=== PATIENT | female | born 1950 | race Asian ===

== ENCOUNTER 2020-12-05 08:19 | Outpatient (CLI) | payer MEDICARE | END 2020-12-05 08:20 | disposition critical access hospital (66) | LOC: EMS 08:19 | PROVIDERS: ATTEND Emergency Medicine | DX: R26.81 Unsteadiness on feet (principal); R51.9 Headache, unspecified | CPT/HCPCS: A0425; A0429 ==

== ENCOUNTER 2020-12-05 08:29 | Observation (INO) | payer MEDICARE, OTHER ==
--- NOTE | 2020-12-05 09:32 | ED Physician Documentation ---
History of Present Illness - Stated complaint Stated Complaint: WEAKNESS - Chief complaint Chief Complaint: General - History obtained from History obtained from: Patient - Additonal information Additional information: 70-year-old woman with past medical history of diabetes (on Metformin and glimepiride bid), high blood pressure (on atenolol 50 mg every morning, hydrochlorothiazide every morning, losartan nightly), hld, nonsmoker, p/w multiple presyncopal episodes this morning upon waking. Patient states that she was feeling normal yesterday and went to bed but then awoke this morning and sat up suddenly with subsequent waves of nausea and lightheadedness. She laid back down and then attempted to get up multiple times and feels that she either almost fainted or did faint with her legs shaking and then giving out. She called EMS and drink a few sips of soda, thinking that her blood sugar may be low. On arrival fingerstick was in the 140s and she was found to be hypertensive. In the emergency department she states that she is asymptomatic as long as she stays still but gets lightheaded when she moves around. Denies chest pain, shortness of breath, fevers, back pain or abdominal pain. No neuro deficits however her brain feels "foggy". She was seen by her pcp last week and given a new medicine script but doesn't know what it is. She also has trouble listing her meds and some of the bottles have her 's name on it. She says this is because she takes the same meds and is just using his leftover meds so as not to waste them. Of note, patient denies taking atenolol this am, however she is bradycardic in the ED. Collateral info from daughter in [place]: patient is independent with ADLs and takes her own medications, has not had issue in the past. Her Libby in January 2020. Note that the patient and her took some of the same meds and the atenolol bottle has his name on it. Review of Systems Ten Systems: 10 systems reviewed and negative Constitutional: denies: Fever, Chills Cardiac: denies: Chest pain / pressure Respiratory: denies: Dyspnea GI: reports: Nausea. denies: Abdominal Pain, Vomiting Neurologic: reports: Generalized weakness, Near syncope, Syncope (presyncope vs syncope). denies: Focal weakness, Numbness, Difficulty speaking PD PAST MEDICAL HISTORY - Past Medical History Past Medical History: Yes Cardiovascular: Hypertension Endocrine/Autoimmune: Type 2 diabetes - Past Surgical History Past Surgical History: No - Present Medications Home Medications: Ambulatory Orders Medication Instructions Recorded Confirmed Atorvastatin Calcium [Lipitor] 40 mg PO HS 05/21/13 12/05/20 Fexofenadine [Mariluz] 60 mg PO HS 05/21/13 12/05/20 Hydrochlorothiazide 25 mg PO HS 05/21/13 12/05/20 Losartan [Cozaar] 50 mg PO HS 05/21/13 12/05/20 Metformin HCl [Glucophage Xr] 500 mg PO BID 05/21/13 12/05/20 Omeprazole 20 mg PO HS 05/21/13 12/05/20 Aspirin [Aspirin EC] 1 tab PO DAILY 12/05/20 12/05/20 Atenolol [Tenormin] 1 tab PO DAILY 12/05/20 12/05/20 Glimepiride [Amaryl] 1 tab PO BID 12/05/20 12/05/20 Tocopheryl [Vitamin E] 1 tab PO BID 12/05/20 12/05/20 traZODone [Desyrel] 1 tab PO ACHS PRN 12/05/20 12/05/20 - Allergies Allergies/Adverse Reactions: Allergies Allergy/AdvReac Type Severity Reaction Status Date / Time Penicillins Allergy Mild itch Verified 12/05/20 09:07 - Social History Does the pt smoke?: No Smoking Status: Never smoker Does the pt drink ETOH?: No - Immunizations Immunizations are current?: Yes Immunizations: TDAP current <10years PD ED PE NORMAL - Vitals Vital signs reviewed: Yes - General General: Alert and oriented X 3, No acute distress, Well developed/nourished - HEENT HEENT: Atraumatic, PERRL, EOMI - Neck Neck: Supple, no meningeal sign - Cardiac Cardiac: Other (bradycardic rate, regular rhythm) - Respiratory Respiratory: No respiratory distress, Clear bilaterally - Abdomen Abdomen: Non tender, Non distended - Female Female : Deferred - Rectal Rectal: Deferred - Back Back: No CVA TTP, No spinal TTP - Derm Derm: Normal color, Warm and dry - Extremities Extremities: No deformity, No edema - Neuro Neuro: Alert and oriented X 3, organ fixer 2-12 intact, No motor deficit, No sensory deficit, Normal speech - Psych Psych: Normal mood, Normal affect, Other (patient is AOX4 however she is having trouble listing her medications and is a bit slow to respond while being interviewed) Results - Vitals Vitals: Vital Signs - 24 hr 12/05/20 12/05/20 12/05/20 08:30 09:00 09:40 Temperature 35.9 C L Heart Rate 55 L 55 L Heart Rate [ 52 L Sitting] Heart Rate [ 52 L Standing] Heart Rate [ 49 L Supine] Respiratory 16 16 Rate Blood Pressure 165/54 H 166/68 H Blood Pressure 147/115 H [Sitting] Blood Pressure 150/90 H [Standing] Blood Pressure 161/72 H [Supine] O2 Saturation 100 100 Oxygen O2 Source Room air - EKG (time done) 0845 Rate: Rate (enter#) (49) Rhythm: Sinus bradycardia Intervals: Other (MD 145) QRS: Normal (98) Other comments: Other comments (qt/qtc 457/413) - Labs Labs: Laboratory Tests 12/05/20 12/05/20 12/05/20 09:05 09:45 09:45 WBC 13.7 H RBC 4.90 Hgb 14.1 Hct 41.6 MCV 84.9 MCH 28.8 MCHC 33.9 RDW 13.2 Plt Count 335 MPV 10.3 Neut # (Auto) 10.7 H Lymph # (Auto) 2.1 Brooks # (Auto) 0.7 Eos # (Auto) 0.1 Baso # (Auto) 0.1 Absolute Nucleated RBC 0.00 Nucleated RBC % 0.0 Sodium 123 L Potassium 4.0 Chloride 81 L Carbon Dioxide 26 Anion Gap 16.0 H BUN 12 Creatinine 0.7 Estimated GFR (MDRD) 83 L Glucose 112 H Calcium 9.2 Magnesium 1.3 L Total Bilirubin 1.1 H AST 22 ALT 24 Alkaline Phosphatase 80 Troponin I High Sens 3.2 Total Protein 7.3 Albumin 4.1 Globulin 3.2 Albumin/Globulin Ratio 1.3 Lipase 26 TSH Free T4 Thyroxine (T4) Free T3 pg/mL Total T3 Nasal Adenovirus (PCR) Nasal B. parapertussis DNA (PCR) Nasal Coronavir 229E PCR Nasal Coronavir HKU1 PCR Nasal Coronavir NL63 PCR Nasal Coronavir OC43 PCR Nasal Enterovir/Rhinovir PCR Nasal Influenza B PCR Nasal Influenza A PCR Nasal Parainfluen 1 PCR Nasal Parainfluen 2 PCR Nasal Parainfluen 3 PCR Nasal Parainfluen 4 PCR Nasal RSV (PCR) Nasal B.pertussis DNA PCR Nasal C.pneumoniae (PCR) Malcom Human Metapneumo PCR Nasal M.pneumoniae (PCR) Nasal SARS-CoV-2 (PCR) 12/05/20 12/05/20 09:45 09:50 WBC RBC Hgb Hct MCV MCH MCHC RDW Plt Count MPV Neut # (Auto) Lymph # (Auto) Brooks # (Auto) Eos # (Auto) Baso # (Auto) Absolute Nucleated RBC Nucleated RBC % Sodium Potassium Chloride Carbon Dioxide Anion Gap BUN Creatinine Estimated GFR (MDRD) Glucose Calcium Magnesium Total Bilirubin AST ALT Alkaline Phosphatase Troponin I High Sens Total Protein Albumin Globulin Albumin/Globulin Ratio Lipase TSH 0.90 Free T4 1.20 Thyroxine (T4) 11.76 Free T3 pg/mL 2.90 Total T3 0.48 L Nasal Adenovirus (PCR) NOT DETECTED Nasal B. parapertussis DNA (PCR) NOT DETECTED Nasal Coronavir 229E PCR NOT DETECTED Nasal Coronavir HKU1 PCR NOT DETECTED Nasal Coronavir NL63 PCR NOT DETECTED Nasal Coronavir OC43 PCR NOT DETECTED Nasal Enterovir/Rhinovir PCR NOT DETECTED Nasal Influenza B PCR NOT DETECTED Nasal Influenza A PCR NOT DETECTED Nasal Parainfluen 1 PCR NOT DETECTED Nasal Parainfluen 2 PCR NOT DETECTED Nasal Parainfluen 3 PCR NOT DETECTED Nasal Parainfluen 4 PCR NOT DETECTED Nasal RSV (PCR) NOT DETECTED Nasal B.pertussis DNA PCR NOT DETECTED Nasal C.pneumoniae (PCR) NOT DETECTED Malcom Human Metapneumo PCR NOT DETECTED Nasal M.pneumoniae (PCR) NOT DETECTED Nasal SARS-CoV-2 (PCR) NOT DETECTED PD MEDICAL DECISION MAKING - ED course ED course: 70-year-old woman with history of diabetes and high blood pressure presents with symptomatic bradycardia of unknown etiology. Differential includes polypha rmacy, electrolyte derangement, cardiac disturbance, mass-effect. Will obtain labs, x-ray, head CT, repeat x-ray. Plan for at least an overnight stay. 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 also discussed her hyponatremia and bradycardia on ekg. will plan to admit for observation. d/w Dr. Pagan, hospitalist who will see patient. Departure - Departure Disposition: ED Place in Observation Clinical Impression: Symptomatic bradycardia, Hyponatremia, Pre-syncope Condition: Good
[2020-12-05 09:33] LABS: BASOPHILS # (AUTO) 0.1 10^3/uL (0.0-0.1); BASOPHILS % (AUTO) 0.7 %; EOSINOPHILS # (AUTO) 0.1 10^3/uL (0.0-0.7); EOSINOPHILS % (AUTO) 0.6 %; HCT - HEMATOCRIT 41.6 % (37.0-47.0); HGB - HEMOGLOBIN 14.1 g/dL (12.0-16.0); LYMPHOCYTES # (AUTO) 2.1 10^3/uL (1.5-3.5); LYMPHOCYTES % (AUTO) 15.1 %; MEAN CORPUSCULAR HEMOGLOBIN 28.8 pg (27.0-31.0); MEAN CORPUSCULAR HGB CONC 33.9 g/dL (32.0-36.0); MEAN CORPUSCULAR VOLUME 84.9 fL (81.0-99.0); MEAN PLATELET VOLUME 10.3 fL (7.9-10.8); MONOCYTES # (AUTO) 0.7 10^3/uL (0.0-1.0); NEUTROPHILS # (AUTO) 10.7 10^3/uL (1.5-6.6); NEUTROPHILS % (AUTO) 78.1 %; PLT - PLATELET COUNT 335 10^3/uL (130-450); RED CELL DISTRIBUTION WIDTH 13.2 % (12.0-15.0); WHITE BLOOD COUNT 13.7 x10^3/uL (4.8-10.8)
--- NOTE | 2020-12-05 10:01 | XRAY Report ---
PROCEDURE: Chest 1 View X-Ray INDICATIONS: presyncope TECHNIQUE: One view of the chest was acquired. COMPARISON: None FINDINGS: Surgical changes and devices: None. Lungs and pleura: No pleural effusions or pneumothorax. Lungs are abnormal at the right upper lung where a band of radiodensity extending from the superior right hilum towards the lateral right apex i s present, chronicity uncertain. This could represent pneumonia or focal atelectasis, but also could represent some form of postoperative change or scarring. Mediastinum: Mediastinal contours appear normal. Heart size is normal. Bones and chest wall: No suspicious bony lesions. Overlying soft tissues appear unremarkable. IMPRESSION: Cardiomegaly or CHF is not seen. There is an abnormal band of increased radiodensity of the right upp er lobe near the upper right hilum and apex area as discussed. Given the absence of comparison films chronicity of this abnormality is not established. If there is evidence of pneumonia follow-up attent ion to this region for resolution is recommended. If there is a suspicion for presence of neoplasm fo llow-up by contrast-enhanced CT scanning would be recommended. Reviewed by: Home Mccormick MD on 12/05/2020 10:00 AM PST Approved by: Hmoe Mccormick MD on 12/05/2020 10:00 AM PST Station ID: [id number]
[2020-12-05 10:08] LABS: ALBUMIN 4.1 g/dL (3.2-5.5); ALBUMIN/GLOBULIN RATIO 1.3 (1.0-2.2); BILIRUBIN,TOTAL 1.1 mg/dL (0.2-1.0); CALCIUM 9.2 mg/dL (8.5-10.3); CREATININE 0.7 mg/dL (0.4-1.0); MAGNESIUM 1.3 mg/dL (1.7-2.8); TOTAL PROTEIN 7.3 g/dL (6.7-8.2)
[2020-12-05 10:28] LABS: T4 (THYROXINE) 11.76 ug/dL (6.09-12.23)
[2020-12-05 10:31] LABS: THYROID STIMULATING HORMONE 0.9 uIU/mL (0.34-5.60)
[2020-12-05 10:33] LABS: FREE T3 2.9 pg/mL (2.5-3.9); FREE T4 (FREE THYROXINE) 1.2 ng/dL (0.58-1.64)
[2020-12-05 10:37] LABS: TOTAL T3 0.48 ng/mL (0.87-1.78)
--- NOTE | 2020-12-05 10:38 | CT Report ---
PROCEDURE: HEAD WO INDICATIONS: presyncope, foggy, bradycardia TECHNIQUE: Noncontrast 4.5 mm thick angled axial sections acquired from the foramen magnum to the vertex. For r adiation dose reduction, the following was used: automated exposure control, adjustment of mA and/or kV according to patient size. COMPARISON: None. FINDINGS: Image quality: Excellent. CSF spaces: Basal cisterns are patent. No extra-axial fluid collections. Ventricles are normal in size and shape. Brain: No midline shift. No intracranial masses or hemorrhage. Fernandez-white matter interface is norm al. Skull and face: Calvarium and visualized facial bones are intact, without suspicious lesions. Sinuses: Marked mucosal thickening of the left maxillary sinus. Other visualized sinuses and mastoids appear clear. IMPRESSION: 1. Left maxillary sinus disease. 2. Otherwise negative study. No evidence acute stroke, hemorrhage, or mass. Reviewed by: Mauricio Lerma MD on 12/05/2020 10:37 AM [facility] Approved by: Mauricio Lerma MD on 12/05/2020 10:37 AM [facility] Station ID: [id number]
[2020-12-05 10:48] LABS: B. PARAPERTUSSIS- RESP PCR PAN NOT DETECTED; B. PERTUSSIS- RESP PCR PANEL NOT DETECTED; C. PNEUMONIAE- RESP PCR PANEL NOT DETECTED; CORONAVIRUS 229E-RESP PCR NOT DETECTED; CORONAVIRUS HKU1-RESP PCR NOT DETECTED; CORONAVIRUS NL63-RESP PCR NOT DETECTED; CORONAVIRUS OC43-RESP PCR NOT DETECTED; HUMAN METAPNEUMOVIRUS NOT DETECTED; INFLUENZA A- RESP PCR PANEL NOT DETECTED; INFLUENZA B - RESP PCR PANEL NOT DETECTED; M. PNEUMONIAE- RESP PCR PANEL NOT DETECTED; PARAINFLUENZA VIRUS 1 NOT DETECTED; PARAINFLUENZA VIRUS 2 NOT DETECTED; PARAINFLUENZA VIRUS 3 NOT DETECTED; PARAINFLUENZA VIRUS 4 NOT DETECTED; RHINOVIRUS/ENTEROVIRUS NOT DETECTED; RSV- RESP PCR PANEL NOT DETECTED; SARS-CoV-2 -RESP PCR PANEL NOT DETECTED
[2020-12-05] MEDS: SODIUM CHLORIDE 0.9% 1,000 ML IV SCH (12:19)
[2020-12-05 13:45] LABS: BILIRUBIN,URINE NEGATIVE (NEGATIVE); GLUCOSE, URINE (UA) NEGATIVE (NEGATIVE); KETONES,URINE (UA) 15 mg/dL (NEGATIVE); LEUKOCYTE ESTERASE, URINE NEGATIVE (NEGATIVE); NITRITE,URINE NEGATIVE (NEGATIVE); OCCULT BLOOD,URINE NEGATIVE (NEGATIVE); PROTEIN,URINE NEGATIVE (NEGATIVE); UROBILINOGEN,URINE 0.2 (NORMAL) E.U./dL (NORMAL)
[2020-12-05 13:46] LABS: CLARITY,URINE CLEAR (CLEAR)
--- NOTE | 2020-12-05 14:58 | PHARMACY PROGRESS NOTE ---
- Best Possible Medication History Admit Date and Time: 12/05/20 1115 Processed by: Pharmacy Medication History completed: Yes Patient Interview: Completed Secondary Source(s): Physician records (PATIENT INTERVIEWED BY HIDE HANDLER. PATIENT ABLE TO CONFIRM HOME MEDICATIONS ), Pharmacy records, Insurance records As the person ultimately responsible for medication therapy, providers are able to order a medication from an existing home medication list in [facility] via the "Reconcile Routine" prior to Confirmation of that medication by user support analyst. Such practice is discouraged except when the physician, in their clinical judgment, deems that a medical need exists for a medication without regard to previous use.
[2020-12-05] MEDS ORDERED: ACETAMINOPHEN 325 MG TABLET PO PRN (14:59)
[2020-12-05] MEDS ORDERED: ONDANSETRON 4 MG/2 ML VIAL IVP PRN (14:59)
[2020-12-05] MEDS ORDERED: SODIUM CHLORIDE FLUSH 0.9% 10 ML SYRINGE IVP PRN (14:59)
[2020-12-05] MEDS ORDERED: NON FORMULARY MED (Epinephrine [Epinephrine] 0.3 MG/0.3 ML Auto.Injct) IM PRN (15:02)
[2020-12-05] MEDS ORDERED: FLUTICASONE NASAL SPRAY NAS PRN (15:02)
[2020-12-05] MEDS ORDERED: glipiZIDE 5 MG TABLET PO SCH (17:00)
[2020-12-05] MEDS: SODIUM CHLORIDE FLUSH 0.9% 10 ML SYRINGE IVP SCH (17:05)
[2020-12-05] MEDS ORDERED: ATORVASTATIN 40 MG TABLET PO SCH (21:00)
[2020-12-05] MEDS ORDERED: LOSARTAN 50 MG TABLET PO SCH (21:00)
[2020-12-05] MEDS: metFORMIN 500 MG TABLET PO SCH (21:09)
[2020-12-05] MEDS: FAMOTIDINE 20 MG TABLET PO SCH (21:10)
[2020-12-06] MEDS: SODIUM CHLORIDE 0.9% 1,000 ML IV SCH ×2 (00:10→13:02)
[2020-12-06] MEDS: SODIUM CHLORIDE FLUSH 0.9% 10 ML SYRINGE IVP SCH ×2 (00:12→09:04)
[2020-12-06 05:22] LABS: CALCIUM 9.7 mg/dL (8.5-10.3); CREATININE 0.7 mg/dL (0.4-1.0); MAGNESIUM 1.6 mg/dL (1.7-2.8)
[2020-12-06] MEDS ORDERED: glipiZIDE 5 MG TABLET PO SCH (07:30)
[2020-12-06] MEDS ORDERED: ZINC PO SCH (09:00)
[2020-12-06] MEDS ORDERED: [UNRECOGNIZED DRUG - OTHER] PO SCH (09:00)
[2020-12-06] MEDS ORDERED: VIT E PO SCH (09:00)
[2020-12-06] MEDS ORDERED: COPPER PO SCH (09:00)
[2020-12-06] MEDS ORDERED: VIT A PO SCH (09:00)
[2020-12-06] MEDS ORDERED: CYANOCOBALAMIN 500 MCG TABLET PO SCH (09:00)
[2020-12-06] MEDS ORDERED: VITAMIN E 400 UNIT PO SCH (09:00)
[2020-12-06] MEDS ORDERED: ASPIRIN EC 81 MG TABLET PO SCH (09:00)
[2020-12-06] MEDS ORDERED: VIT C PO SCH (09:00)
[2020-12-06] MEDS: FAMOTIDINE 20 MG TABLET PO SCH (09:04)
[2020-12-06] MEDS: metFORMIN 500 MG TABLET PO SCH (09:04)
[2020-12-06] MEDS ORDERED: FLUTICASONE NASAL SPRAY NAS PRN (10:57)
[2020-12-06 11:40] LABS: ESTIMATED AVERAGE GLUCOSE 171 mg/dL (70-100); HEMOGLOBIN A1c% 7.6 % (4.27-6.07)
[2020-12-06] MEDS ORDERED: MAGNESIUM SULFATE 2 GRAM 2 GM/50 ML BAG IV ONE (12:00)
[2020-12-06 12:46] VITALS: BP 174/61
--- NOTE | 2020-12-06 14:18 | Discharge Plan ---
Discharge Plan Problem Reviewed?: Yes Disposition: Home, Self Care Condition: Stable Diet: Diabetic Activity Restrictions: Activity as Tolerated Shower Restrictions: No Driving Restrictions: Yes (You may not drive due to this diagnosis, until cleared by your PCP) Instruction Topics: Syncope, Syncope Causes, Syncope Tx Prevent Health Concerns: You were in the hospital to evaluate causes for your near-syncope (dizziness and nearly fainting). We found you to have an excessively low heart rate and the Atenolol has now been stopped, the heart rate has improved. We found you to have a drop in blood pressure when you stand and a low serum sodium, and the HCTZ medicine was adding to these problems and it has now been stopped. We found you to have a low blood glucose and the upcoming changes in your oral diabetic pills sound like they will be too excessive, they could drop your sugar too much. Do not start the new diabetic medicines until you are seen by your PCP and he reviews this hospitalization. Please follow the new list of medications. Please see your PCP for hospital follow-up in the next 1 to 2 weeks. You ARE NOT ALLOWED to drive an automobile because of this near-syncope event, until you are cleared to do so by your PCP. If you are found to be driving before clearance, you would be arrested. Plan of Treatment: As above. Care Goals: Improvement in symptoms and stabilization are the goals. Assessment: The patient understands the plan, written reminders are provided at discharge. Additional Instructions or Follow Up instructions: If you have new or worsening symptoms, call your PCP for advice or come to the ER. No Smoking: If you smoke, Please STOP! Call for help.
[2020-12-06 14:36] LABS: BASOPHILS # (AUTO) 0.1 10^3/uL (0.0-0.1); BASOPHILS % (AUTO) 0.9 %; EOSINOPHILS # (AUTO) 0.3 10^3/uL (0.0-0.7); EOSINOPHILS % (AUTO) 2.2 %; HCT - HEMATOCRIT 37.8 % (37.0-47.0); HGB - HEMOGLOBIN 12.5 g/dL (12.0-16.0); LYMPHOCYTES # (AUTO) 2.6 10^3/uL (1.5-3.5); MEAN CORPUSCULAR HEMOGLOBIN 28.5 pg (27.0-31.0); MEAN CORPUSCULAR HGB CONC 33.1 g/dL (32.0-36.0); MEAN CORPUSCULAR VOLUME 86.3 fL (81.0-99.0); MEAN PLATELET VOLUME 9.3 fL (7.9-10.8); MONOCYTES # (AUTO) 0.7 10^3/uL (0.0-1.0); MONOCYTES % (AUTO) 6.1 %; NEUTROPHILS # (AUTO) 7.9 10^3/uL (1.5-6.6); NEUTROPHILS % (AUTO) 68.5 %; PLT - PLATELET COUNT 301 10^3/uL (130-450); RED BLOOD COUNT 4.38 10^6/uL (4.20-5.40); RED CELL DISTRIBUTION WIDTH 13.4 % (12.0-15.0); WHITE BLOOD COUNT 11.6 x10^3/uL (4.8-10.8)
--- NOTE | 2020-12-06 15:06 | DISCHARGE SUMMARY ---
Discharge Summary Admit Date: 12/05/20 Discharge Date: 12/06/20 Discharging Provider: Dr Amaya Villarreal Primary Care Provider: Betty Cook PCP Condition at Discharge: Stable Discharge Disposition: 01 Home, Self Care - HPI History of Present Illness: This is a 70 y/o [place] female with a history of Diabetes, HTN and GERD, who became a 10 mos ago, and lives alone with 5 dogs. Her diabetic management is about to have increases in oral medications. Today, after breakfast while walking, she became suddenly lightheaded and had to "hold on to the wall" in or baylee not to fall, she was able to sit down, then called her daughter who told her to call an ambulance, which she did. The ambulance run sheet has a documented BP at the scene of 192 systolic, then later a BP of 106/75 (unknown if this was an orthostatic BP or simply measured later). Her heart rate was 55 and a glucose level was 141. There were no complaints of palpitations, chest pain or SOB. In the ER, she was persistently bradycardiac. Her labs revealed a serum sodium of 123, and Magnesium of 1.3. She had a head CT which showed left maxillary sinusitis but no stroke or mass. She is being placed in Observation on telemetry to evaluate near-syncope, hyponatremia and bradycardia. - HOSPITAL COURSE Hospital Course: 1 Near syncope This was felt to be multi-factorial: from bradycardia, orthostasis, and hyponatremia. The Atenolol was stopped, and the heart rate improved. The HCTZ was stopped. She was treated with iv saline for her low serum sodium and orthostasis. Her troponins were normal. She underwent a resting Echo that showed normal LV and RV contractility, mild LV diastolic dysfunction, mild tricuspid regurgitation with PA pressure mildly elevated at 39 mmHg. She felt much better with stable vital signs by the next day and was discharged. She was told not to drive an automobile because of this near-syncope event, until cleared to do so by her PCP. 2 Symptomatic bradycardia Her Atenolol was stopped. Her heart rate improved to 60-70 at rest. 3 Orthostatic hypotension She had 20 mmHg drops in systolic BP without any compensatory heart rate change (due to Atenolol). Giving iv fluids and stopping Atenolol and HCTZ helped. 3 Hypertension Her BP checks showed some supine HTN. The Losartan was continued. She may need some Atenolol resumed, but a much lower dose. She was advised to see her PCP soon, for further adjustments of meds. 4 Diabetes mellitus Her A1c was 7.6. She was on a diabetic diet and had ss Insulin coverage ordered. Her glucose accuchecks ran 100-220, but she had a morning low blood glucose of 84. The upcoming increases in her oral diabetic pills sound like may cause more excessive low glucoses. She was advised not start the new diabetic medicines until seen by her PCP to review the findings during this hospitalization. 5 Hyponatremia She was started on iv saline. Her HCTZ was stopped. By the next day, her serum sodium was 134. 6 Hypomagnesemia This was likely from HCZ use. Her Magnesium was replaced. She was advised to stop the daily HCTZ, and see her PCP for further management. 7 Lung mass Her admission CXR was read as having no CHF or cardiomegaly, but an abnormal band of increased density was seen in the right upper lobe near the right hilum and apex. Infiltrate vs atelectasis vs scar vs mass could not be ruled out, and repeat imaging was advised with contrast-enhanced CT scanning. This should be done as an outpatient. 8 GERD She was continued on her GI medications while here. 9 Leg cramps On review of systems, she reported increasing leg cramps in her calves and poste rior thighs, worse when legs are elevated. This may have been from hypomagnesemia, but an outpatient work-up for claudication should be done. - ALLERGIES Allergies/Adverse Reactions: Allergies Allergy/AdvReac Type Severity Reaction Status Date / Time Penicillins Allergy Mild itch Verified 12/05/20 09:07 - MEDICATIONS Home Medications: Ambulatory Orders Medication Instructions Recorded Confirmed Losartan [Cozaar] 50 mg PO HS 05/21/13 12/05/20 Omeprazole 20 mg PO BID 05/21/13 12/05/20 Aspirin [Aspirin EC] 81 mg PO DAILY 12/05/20 12/05/20 Atorvastatin Calcium [Lipitor] 80 mg PO QPM 12/05/20 12/05/20 Cyanocobalamin (Vitamin B-12) 1,000 mcg PO DAILY 12/05/20 12/05/20 [Vitamin B-12] EPINEPHrine [Epinephrine] 0.3 mg IM PRN PRN 12/05/20 12/05/20 Fluticasone [Flonase] 1 spray DEV BID PRN 12/05/20 12/05/20 Glipizide 15 mg PO QPM 12/05/20 12/05/20 Glipizide 20 mg PO DAILY 12/05/20 12/05/20 Vit A/Vit C/Vit E/Zinc/Copper 1 cap PO DAILY 12/05/20 12/05/20 [Preservision Areds Softgel] Vitamin E 400 unit PO DAILY 12/05/20 12/05/20 metFORMIN [Glucophage] 1,000 mg PO BID 12/05/20 12/05/20 - PHYSICAL EXAM AT DISCHARGE General Appearance: positive: No acute distress, Alert Eyes Bilateral: positive: Normal inspection, EOMI ENT: positive: ENT inspection nml, No signs of dehydration Neck: positive: Nml inspection, No JVD Respiratory: positive: No respiratory distress, Breath sounds nml Cardiovascular: positive: Regular rate & rhythm, No murmur Abdomen: positive: Non-tender, Nml bowel sounds, No distention Skin: positive: Warm, Dry Extremities: positive: Non-tender, No pedal edema Neurologic/Psychiatric: positive: Oriented x3 (Non-focal.) - LABS Result Diagrams: 12/06/20 14:30 12/06/20 04:12 - DIAGNOSTIC IMAGING Diagnostic Imaging Results: Final report reviewed - FOLLOW UP Follow Up: See PCP in 5-10 days for hospital follow-up. - TIME SPENT Time Spent in Discharge (Minutes): 45
--- NOTE | 2020-12-09 08:06 | HISTORY & PHYSICAL EXAMINATION ---
DATE OF SERVICE: 12/05/2020 Physician: Amaya Villarreal MD HISTORY OF PRESENT ILLNESS: This is a 70-year-old woman of [place] ethnicity. She was recently made a when her 10 months ago. Her next living relative is a daughter, who lives in [place]. The patient has a history of hypertension, diabetes, and GERD. She has a PCP at the [facility] because of restrictions with her insurance, she states. The patient has been on oral medications for her diabetes and is about to start new Actos, and new Glimepiride for diabetic control, and has been on metformin and glipizide currently. She has a history of hypertension and is compliant with her medications. Over the last 2 weeks, she has developed GERD symptoms, especially worse after eating spicy food for which she was started on omeprazole b.i.d. for 2 weeks and this has helped her symptoms. The patient also describes leg cramps that occur any time, they are worse at night when she raises her legs. She has never been worked up for ischemic peripheral vascular disease. Today, while she was walking in her house in the morning after breakfast, she became suddenly very dizzy and needed to "hold onto the arango, so she would not fall." She was able to sit herself down and called her daughter to tell her daughter how she felt. The daughter told her to call EMS and she did call 911. The paramedics arrived. The EMT run sheet shows that she was complaining of "weak legs." At the scene, her blood pressure was 192 systolic, heart rate was 55 and regular, and oxygen saturation was 100%. There is a note on the ambulance run sheet that says her blood pressure later dropped to 106/75 and it is unknown if this was with standing or simply later. A blood sugar at the scene was 141. She was brought to the ER. She never had full syncope. She had no palpitations, chest pain or shortness of breath when this happened. She has never had these symptoms before. In the ER, she had a set of orthostatic vital signs that showed no drop in blood pressure, but she has been continuously bradycardic with rates of 48 - 50. The patient is being placed in Observation status for evaluating near syncope and probably has symptomatic bradycardia. PAST MEDICAL HISTORY: Hypertension, diabetes, GERD. ALLERGIES: PENICILLIN. MEDICATIONS 1. Omeprazole 20 mg b.i.d. 2. Atenolol 100 mg daily. 3. HCTZ 12.5 mg daily. 4. Aspirin 81 mg daily. 5. Atorvastatin 80 mg every night. 6. Vitamin B12 1000 mcg daily. 7. EpiPen p.r.n. anaphylaxis. 8. Flonase nasal spray p.r.n. 9. Glipizide 20 mg in the morning and 15 mg in the evening. 10. Losartan 50 mg every night. 11. Metformin 1000 mg b.i.d. 12. PreserVision soft gel 1 daily. 13. Vitamin E 400 units daily. FAMILY HISTORY: No inherited diseases. SOCIAL HISTORY: She is a nonsmoker who never smoked, drinks rare alcohol socially, there is no illicit drug use history. The patient retired from [employer] in 2019. Her in 01/2020. She lives alone with several dogs. She has only 1 child, the daughter, who lives in [place]. The daughter has come to her house already today to take care of the dogs. REVIEW OF SYSTEMS: A comprehensive review of systems was performed and the pertinent positives are listed, the rest are negative. PHYSICAL EXAM GENERAL: Elderly small female who is in no distress. VITAL SIGNS: Blood pressure 147/115, heart rate 52 and regular, afebrile, room air saturation 100%. HEENT: Unremarkable, moist oral mucosa. NECK: No JVD or carotid bruits. CHEST: Clear. HEART: Normal heart sounds. No murmurs. ABDOMEN: Soft, nontender. Normal bowel sounds. No organomegaly. EXTREMITIES: No clubbing, cyanosis or edema. NEUROLOGIC: Intact. LABORATORY DATA: Sodium 123, potassium 4.0, anion gap 16, BUN 12, creatinine 0.7. Her serum carbon dioxide is 26. Magnesium is 1.3. Normal liver tests. Troponin is 3.2. Normal albumin. TSH low normal at 0.9, therefore more thyroid tests were done and this showed a free T4 normal at 1.2, a thyroxine of 11.7, a free T3 of 2.9 and a total T3 low of 0.48. CBC showed a white count of 13.7 with a normal hemoglobin of 14 and normal platelet count of 335. No INR was done. Her respiratory test was negative for COVID. Her urinalysis was clear with a pH of 7 and high ketones present, but everything else was negative. IMAGING: Chest x-ray: No active cardiac or pulmonary disease. There is radiodensity in the right upper lobe near the right hilum and apex, which could be artifact or pneumonia or a tumor. Head CT was done and showed left maxillary sinus disease, but otherwise a negative study with no stroke, hemorrhage or mass. EKG: Sinus bradycardia with a rate of 49 and poor R-wave progression, otherwise within normal limits. IMPRESSION/DIAGNOSES 1. Near syncope. 2. Symptomatic bradycardia. 3. Hypertension. 4. Diabetes mellitus. 5. Hyponatremia, probably related to HCTZ use. 6. Hypomagnesemia. 7. Lung mass. 8. Gastroesophageal reflux disease. 9. Leg cramps. PLAN: Place the patient in Observation status. Monitor her heart rate on telemetry. Stop the Atenolol. Stop the hydrochlorothiazide and give gentle hydration using saline, for treating the hyponatremia. Follow the sodium and correct it slowly. Replace her magnesium. Begin a diabetic diet and continue with her oral antihyperglycemics. Obtain an A1c level. Continue her other medications for blood pressure control besides the Atenolol and HCTZ. Check orthostatic vital signs. Obtain an Echo to evaluate chamber sizes and LV contractility and valves. Continue with her medicines for GERD. If leg cramps continue and are worse in a supine position, then outpatient workup for peripheral arterial disease should be undertaken. Continue with her daily aspirin dose and statin dose. PT evaluation will be requested because of living alone and this episode of near syncope is concerning, given her risk of falls. DVT PROPHYLAXIS: SCDs. CODE STATUS: FULL CODE. ATTESTATION: The patient is expected to be discharged or transferred to another facility within 96 hours: Yes. TD: 12/05/2020 19:01 SPENCER
== END 2020-12-06 16:38 | disposition home or self-care (01) ==
LOC: EDUNIT# → MERGE 08:29 → ED 08:29 → MS3 11:15
PROVIDERS: ADMIT Internal Medicine; ATTEND Internal Medicine
DX: R55 Syncope and collapse (principal); R00.1 Bradycardia, unspecified; I95.2 Hypotension due to drugs; T44.7X5A Adverse effect of beta-adrenoreceptor antagonists, initial encounter; Y92.009 Unspecified place in unspecified non-institutional (private) residence as the place of occurrence of the external cause; I10 Essential (primary) hypertension; E11.649 Type 2 diabetes mellitus with hypoglycemia without coma; Z79.84 Long term (current) use of oral hypoglycemic drugs; E87.1 Hypo-osmolality and hyponatremia; E83.42 Hypomagnesemia; R91.8 Other nonspecific abnormal finding of lung field; K21.9 Gastro-esophageal reflux disease without esophagitis; R25.2 Cramp and spasm; Z79.899 Other long term (current) drug therapy; Z20.822 Contact with and (suspected) exposure to COVID-19
CPT/HCPCS: 36415; 70450; 71045; 80048; 80053; 81003; 83036; 83690; 83735; 84436; 84439; 84443; 84480; 84481; 84484; 85025; 87631; 93005; 93306; 96365; 96366; 97161; 99285; A9270; G0378; 0202U; 81001; 87086

== ENCOUNTER 2020-12-16 07:17 | Outpatient (CLI) | payer MEDICARE ==
[2020-12-16 07:49] LABS: CALCIUM 9.9 mg/dL (8.5-10.3); CREATININE 0.6 mg/dL (0.4-1.0)
== END 2020-12-16 07:18 | disposition home or self-care (01) ==
LOC: LAB 07:17
PROVIDERS: ATTEND Internal Medicine
DX: I10 Essential (primary) hypertension (principal); E11.9 Type 2 diabetes mellitus without complications
CPT/HCPCS: 36415; 80048

== ENCOUNTER 2020-12-19 11:03 | Outpatient (CLI) | payer MEDICARE ==
[2020-12-19 11:33] LABS: ALBUMIN 4.3 g/dL (3.2-5.5); CALCIUM 9.5 mg/dL (8.5-10.3); CREATININE 0.7 mg/dL (0.4-1.0); PHOSPHORUS 2.5 mg/dL (2.5-4.6)
== END 2020-12-19 11:04 | disposition home or self-care (01) ==
LOC: LAB 11:03
PROVIDERS: ATTEND Internal Medicine
DX: E87.1 Hypo-osmolality and hyponatremia (principal)
CPT/HCPCS: 36415; 80069; 83935; 84300

== ENCOUNTER 2020-12-23 13:39 | Outpatient (CLI) | payer MEDICARE ==
[2020-12-23] MEDS ORDERED: IOVERSOL 320 100 ML VIAL IVP ONE ×2 (14:09→14:35)
--- NOTE | 2020-12-23 15:51 | CT Report ---
PROCEDURE: CHEST W INDICATIONS: ABN CHEST XRAY CONTRAST: IV CONTRAST: Optiray 320 ml: 100 PO CONTRAST: *NO PO CONTRAST TECHNIQUE: After the administration of intravenous contrast, 5 mm thick sections acquired from the pulmonary api alpesh to the posterior costophrenic angles. 7 mm thick coronal MIP reformats were acquired. For radia tion dose reduction, the following was used: automated exposure control, adjustment of mA and/or kV according to patient size. COMPARISON: Chest radiographs 12/05/2020. FINDINGS: Image quality: Excellent. Lungs and pleura: Minimal scarring or atelectasis seen in the lingula. A left upper lobe nodule measu res 6 x 4 mm (image 100 of series 4). There is chronic bronchiectasis and bronchial wall thickening a s well as scarring and volume loss in the right lung lung extending from the hilum to the apex, which corresponds with the previously seen radiographic abnormality. No pleural effusions or pneumothorax. Central and peripheral airways are patent and normal in caliber. Mediastinum: Heart size is normal. No pericardial effusion. No mediastinal or hilar adenopathy by size criteria. Thoracic aorta and central pulmonary arteries are normal in size. Esophagus is lori l in caliber. No hiatal hernia. Bones and chest wall: No suspicious bony lesions. No vertebral body compression fractures. No axil suzanna or supraclavicular adenopathy by size criteria. Thyroid gland appears normal. Mild degenerative changes are seen in the spine. Abdomen: Visualized upper abdominal solid organs appear normal. Upper abdominal bowel loops are nor mal in caliber. IMPRESSION: 1. Chronic scarring and bronchiectasis is seen in the right upper lobe corresponding to the previous ly seen radiographically abnormality. Findings are most likely postinfectious/postinflammatory in nuris ology. No discrete mass is seen. 2. Nonspecific 5 mm average diameter solid nodule in the left upper lobe. An optional CT of the ches t may be obtained in 12 months if the patient is at a high risk risk for lung cancer based on Fleisch ner Society guidelines. Reviewed by: Reji Avery MD on 12/23/2020 3:50 PM PDT Approved by: Reji Avery MD on 12/23/2020 3:50 PM PDT Station ID: [id number]
== END 2020-12-23 13:40 | disposition home or self-care (01) ==
LOC: DI 13:39
PROVIDERS: ATTEND Internal Medicine
DX: J47.9 Bronchiectasis, uncomplicated (principal); R91.1 Solitary pulmonary nodule
CPT/HCPCS: 71260; Q9967

== ENCOUNTER 2021-01-03 11:10 | Outpatient (CLI) | payer MEDICARE ==
[2021-01-03 11:42] LABS: BILIRUBIN,URINE NEGATIVE (NEGATIVE); GLUCOSE, URINE (UA) 250 mg/dL (NEGATIVE); KETONES,URINE (UA) NEGATIVE (NEGATIVE); LEUKOCYTE ESTERASE, URINE NEGATIVE (NEGATIVE); NITRITE,URINE NEGATIVE (NEGATIVE); OCCULT BLOOD,URINE SMALL (NEGATIVE); PH,URINE 5.5 PH (5.0-7.5); PROTEIN,URINE NEGATIVE (NEGATIVE); UROBILINOGEN,URINE 0.2 (NORMAL) E.U./dL (NORMAL)
[2021-01-03 11:50] LABS: CLARITY,URINE CLEAR (CLEAR)
[2021-01-03 11:53] LABS: CALCIUM 9.4 mg/dL (8.5-10.3); CREATININE 0.7 mg/dL (0.4-1.0); MAGNESIUM 1.4 mg/dL (1.7-2.8); POTASSIUM 3.9 mmol/L (3.5-5.0)
[2021-01-03 12:01] LABS: RBC,URINE 0-5 /HPF (0-5); WBC,URINE 0-3 /HPF (0-5)
[2021-01-03 12:02] LABS: BACTERIA,URINE Few /HPF (None Seen); SQUAMOUS EPITHELIAL CELL,UR MANY Squamous (<= Few)
== END 2021-01-03 11:11 | disposition home or self-care (01) ==
LOC: LAB 11:10
PROVIDERS: ATTEND Internal Medicine
DX: R35.0 Frequency of micturition (principal); E11.9 Type 2 diabetes mellitus without complications; I10 Essential (primary) hypertension
CPT/HCPCS: 36415; 80048; 81001; 81003; 83735; 83935

== ENCOUNTER 2021-08-19 08:32 | Outpatient (CLI) | payer MEDICARE ==
[2021-08-19 09:12] LABS: CALCIUM 9.8 mg/dL (8.5-10.3); CREATININE 0.7 mg/dL (0.4-1.0); POTASSIUM 4.3 mmol/L (3.5-5.0)
[2021-08-19 09:23] LABS: ESTIMATED AVERAGE GLUCOSE 166 mg/dL (70-100); HEMOGLOBIN A1c% 7.4 % (4.27-6.07)
== END 2021-08-19 08:33 | disposition home or self-care (01) ==
LOC: LAB 08:32
PROVIDERS: ATTEND Internal Medicine
DX: E11.9 Type 2 diabetes mellitus without complications (principal); I10 Essential (primary) hypertension
CPT/HCPCS: 36415; 80048; 83036

== ENCOUNTER 2022-02-10 08:00 | Outpatient (CLI) | payer MEDICARE ==
[2022-02-10 10:46] LABS: HCT - HEMATOCRIT 39.2 % (37.0-47.0); HGB - HEMOGLOBIN 12.9 g/dL (12.0-16.0); MEAN CORPUSCULAR HGB CONC 32.9 g/dL (32.0-36.0); MEAN CORPUSCULAR VOLUME 85.2 fL (81.0-99.0); MEAN PLATELET VOLUME 9.2 fL (7.9-10.8); RED BLOOD COUNT 4.6 10^6/uL (4.20-5.40); RED CELL DISTRIBUTION WIDTH 14.4 % (12.0-15.0)
[2022-02-10 11:14] LABS: CREATININE,URINE 131.5 mg/dL; MICROALBUM/CREATININE RATIO,UR 8.4 ug/mg (<30.0); MICROALBUMIN,URINE 1.1 mg/dL (0-300.0)
[2022-02-10 13:35] LABS: ESTIMATED AVERAGE GLUCOSE 157 mg/dL (70-100); HEMOGLOBIN A1c% 7.1 % (4.27-6.07)
[2022-02-10 16:09] LABS: ALBUMIN/GLOBULIN RATIO 1.1 (1.0-2.2); BILIRUBIN,TOTAL 0.8 mg/dL (0.2-1.0); CALCIUM 9.5 mg/dL (8.5-10.3); CREATININE 0.7 mg/dL (0.4-1.0); POTASSIUM 3.9 mmol/L (3.5-5.0); TOTAL PROTEIN 7.6 g/dL (6.7-8.2)
== END 2022-02-13 13:19 | disposition home or self-care (01) ==
LOC: LAB 08:00
PROVIDERS: ATTEND Internal Medicine
DX: E11.51 Type 2 diabetes mellitus with diabetic peripheral angiopathy without gangrene (principal); M79.89 Other specified soft tissue disorders
CPT/HCPCS: 36415; 80053; 82043; 82570; 82607; 83036; 85027

== ENCOUNTER 2022-06-11 10:23 | Outpatient (CLI) | payer MEDICARE ==
[2022-06-11 11:04] LABS: BUN - BLOOD UREA NITROGEN 14 mg/dL (6-20); CALCIUM 9.8 mg/dL (8.5-10.3); CARBON DIOXIDE - CO2 27 mmol/L (21-32); CHLORIDE 98 mmol/L (101-111); CHOL/HDL RATIO 2.3 (<4.4); CHOLESTEROL 186 mg/dL; CREATININE 0.8 mg/dL (0.4-1.0); GFR - MDRD 71 (>89); GLUCOSE 91 mg/dL (70-100); HDL CHOLESTEROL 80 mg/dL; LDL CHOLESTEROL,CALCULATED 90 mg/dL; LDL/HDL RATIO 1.1 (<4.4); POTASSIUM 4.1 mmol/L (3.5-5.0); SODIUM 137 mmol/L (135-145); TRIGLYCERIDES 81 mg/dL; VLDL CHOLESTEROL 16 mg/dL
[2022-06-11 12:33] LABS: ESTIMATED AVERAGE GLUCOSE 151 mg/dL (70-100); HEMOGLOBIN A1c% 6.9 % (4.27-6.07)
== END 2022-06-11 10:24 | disposition home or self-care (01) ==
LOC: LAB 10:23
PROVIDERS: ATTEND Internal Medicine
DX: E11.51 Type 2 diabetes mellitus with diabetic peripheral angiopathy without gangrene (principal); E87.1 Hypo-osmolality and hyponatremia
CPT/HCPCS: 36415; 80048; 80061; 83036; 83721

== ENCOUNTER 2023-04-15 08:05 | Outpatient (CLI) | payer MEDICARE ==
[2023-04-15 08:44] LABS: CHOL/HDL RATIO 2.8 (<4.4); CHOLESTEROL 176 mg/dL; HDL CHOLESTEROL 63 mg/dL; LDL CHOLESTEROL,CALCULATED 80 mg/dL; LDL/HDL RATIO 1.3 (<4.4); TRIGLYCERIDES 163 mg/dL; VLDL CHOLESTEROL 33 mg/dL
[2023-04-15 11:39] LABS: ESTIMATED AVERAGE GLUCOSE 166 mg/dL (70-100); HEMOGLOBIN A1c% 7.4 % (4.27-6.07)
== END 2023-04-15 08:06 | disposition home or self-care (01) ==
LOC: LAB 08:05
PROVIDERS: ATTEND Internal Medicine
DX: R79.89 Other specified abnormal findings of blood chemistry (principal); E11.51 Type 2 diabetes mellitus with diabetic peripheral angiopathy without gangrene; I73.9 Peripheral vascular disease, unspecified; Z79.84 Long term (current) use of oral hypoglycemic drugs
CPT/HCPCS: 36415; 80061; 82607; 83036; 83721

== ENCOUNTER 2023-08-20 10:54 | Emergency (ER) | payer MEDICARE ==
--- NOTE | 2023-08-20 12:05 | ED Physician Documentation ---
History of Present Illness - Stated complaint Stated Complaint: LT CALF PX - Chief complaint Chief Complaint: Ext Problem - History obtained from History obtained from: Patient - History of Present Illness Timing: How many weeks ago (2) Pain level max: 4 Pain level now: 4 - Additonal information Additional information: 73-year-old female presents to the emergency department 2 weeks of left calf pain. No specific injury. No swelling. No redness. Worse with walking, better with rest. She states she spoke with her primary care provider who sent her here to rule out DVT. Patient denies any trauma. No fevers. No chills. Review of Systems Constitutional: denies: Fever Skin: denies: Rash Neurologic: denies: Headache PD PAST MEDICAL HISTORY - Past Medical History Cardiovascular: High cholesterol, Hypertension Neuro: None Endocrine/Autoimmune: Type 2 diabetes Musculoskeletal: None - Past Surgical History Past Surgical History: No - Present Medications Home Medications: Ambulatory Orders Medication Instructions Recorded Confirmed Losartan [Cozaar] 50 mg PO HS 05/21/13 12/05/20 Omeprazole 20 mg PO BID 05/21/13 12/05/20 Aspirin [Aspirin EC] 81 mg PO DAILY 12/05/20 12/05/20 Atorvastatin Calcium [Lipitor] 80 mg PO QPM 12/05/20 12/05/20 Cyanocobalamin (Vitamin B-12) 1,000 mcg PO DAILY 12/05/20 12/05/20 [Vitamin B-12] EPINEPHrine [Epinephrine] 0.3 mg IM PRN PRN 12/05/20 12/05/20 Fluticasone [Flonase] 1 spray DEV BID PRN 12/05/20 12/05/20 Vit A/Vit C/Vit E/Zinc/Copper 1 cap PO DAILY 12/05/20 12/05/20 [Preservision Areds Softgel] Vitamin E 400 unit PO DAILY 12/05/20 12/05/20 glipiZIDE [Glipizide] 15 mg PO QPM 12/05/20 12/05/20 glipiZIDE [Glipizide] 20 mg PO DAILY 12/05/20 12/05/20 metFORMIN [Glucophage] 1,000 mg PO BID 12/05/20 12/05/20 - Allergies Allergies/Adverse Reactions: Allergies Allergy/AdvReac Type Severity Reaction Status Date / Time Penicillins Allergy Mild itch Verified 12/05/20 09:07 - Social History Does the pt smoke?: No Smoking Status: Never smoker Does the pt drink ETOH?: No - Immunizations Immunizations are current?: Yes Immunizations: TDAP current <10years PD ED PE NORMAL - Vitals Vital signs reviewed: Yes - General General: Alert and oriented X 3, No acute distress - HEENT HEENT: Moist mucous membranes - Neck Neck: Supple, no meningeal sign - Respiratory Respiratory: No respiratory distress - Derm Derm: Warm and dry - Extremities Extremities: Other (Normal examination of the left lower extremity. No calf tenderness. No swelling. No redness. Full range of motion without pain. Ambulating with a normal gait. Neurovascular intact.) - Neuro Neuro: Alert and oriented X 3 - Psych Psych: Normal mood, Normal affect Results - Vitals Vitals: Vital Signs - 24 hr 08/20/23 11:20 Temperature 36.7 C Heart Rate 73 Respiratory 18 Rate Blood Pressure 154/62 H O2 Saturation 98 Oxygen O2 Source Room air - Rads (name of study) Duplex ultrasound left lower extremity Relevant Findings:: Final report received, See rad report PD Medical Decision Making - ED course Complexity details: reviewed results, re-evaluated patient, considered differential, d/w patient ED course: 73-year-old female with left calf pain x2 weeks. Ambulating with a normal steady gait here. Neurovascular intact. No evidence of DVT clinically. Duplex ultrasound does not show any evidence of DVT. We will utilize Motrin and Tylenol as needed for pain at home and have her follow-up with her PCP for further care. Patient counseled regarding signs and symptoms for which I believe and urgent re-evaluation would be necessary. Patient with good understanding of and agreement to plan and is comfortable going home at this time This document was made in part using voice recognition software. While efforts are made to proofread this document, sound alike and grammatical errors may occur. Departure - Departure Disposition: 01 Home, Self Care Clinical Impression: Calf pain Qualifiers: Laterality: left Qualified Code(s): M79.662 - Pain in left lower leg Condition: Good Instructions: ED Strain Muscle Ext Follow-Up: your,doctor in 1 week [Other] Comments: Your ultrasound is normal today. There is no evidence of blood clot. Please follow-up with your doctor for further care. Please return if you worsen. IMPRESSION: No deep venous thrombosis of the visualized lower extremity. Forms: PCP List
--- NOTE | 2023-08-20 12:26 | Ultrasound Report ---
PROCEDURE: Duplex Ext Veins Left INDICATIONS: LLE pain x 2 weeks TECHNIQUE: Real-time imaging, as well as color and pulse Doppler interrogation, were performed of the lower extr emity deep veins from the inguinal ligament to the popliteal fossa. Attempted visualization of the ca lf veins was performed. COMPARISON: None. FINDINGS: The deep veins are normally compressible, and free of intraluminal thrombus. Color and pu lse Doppler demonstrate normal phasic intraluminal flow. There is normal augmentation response to di stal compression maneuver. IMPRESSION: No deep venous thrombosis of the visualized lower extremity. Reviewed by: Misbah Barba on 08/20/2023 12:24 PM PST Approved by: Misbah Barba on 08/20/2023 12:24 PM PST Station ID: [id number]
[2023-08-20 12:45] VITALS: BP 153/68; O2SAT 100
== END 2023-08-20 12:38 | disposition home or self-care (01) ==
LOC: ED 10:54
DX: M79.662 Pain in left lower leg (principal)
CPT/HCPCS: 99283; 99284

== ENCOUNTER 2023-11-15 16:07 | Outpatient (CLI) | payer MEDICARE ==
[2023-11-17 13:11] LABS: A/G RATIO 1.1 (0.7-1.7); ALBUMIN 3.8 g/dL (2.9-4.4); ALPHA-1-GLOBULIN 0.2 g/dL (0.0-0.4); BETA GLOBULIN 1.2 g/dL (0.7-1.3); GAMMA GLOBULIN 1.1 g/dL (0.4-1.8); GLOBULIN, TOTAL 3.5 g/dL (2.2-3.9); PROTEIN TOTAL 7.3 g/dL (6.0-8.5)
== END 2023-11-15 16:08 | disposition home or self-care (01) ==
LOC: LAB 16:07
PROVIDERS: ATTEND Internal Medicine
DX: E87.1 Hypo-osmolality and hyponatremia (principal)
CPT/HCPCS: 84155; 84165

== ENCOUNTER 2023-12-16 12:58 | Outpatient (CLI) | payer MEDICARE ==
[2023-12-16 13:24] LABS: MAGNESIUM 1.4 mg/dL (1.7-2.3)
[2023-12-16 13:46] LABS: FERRITIN 11.9 ng/mL (11.0-306.8)
== END 2023-12-16 12:59 | disposition home or self-care (01) ==
LOC: LAB 12:58
PROVIDERS: ATTEND Internal Medicine
DX: G25.81 Restless legs syndrome (principal)
CPT/HCPCS: 36415; 82728; 83735

== ENCOUNTER 2024-01-03 12:26 | Outpatient (CLI) | payer MEDICARE | END 2024-01-03 12:27 | disposition home or self-care (01) | LOC: LAB 12:26 | PROVIDERS: ATTEND Internal Medicine | DX: E83.42 Hypomagnesemia (principal) | CPT/HCPCS: 36415; 83735 ==

== ENCOUNTER 2024-03-01 14:13 | Outpatient (CLI) | payer MEDICARE ==
[2024-03-01 14:41] LABS: BILIRUBIN,URINE NEGATIVE (NEGATIVE); GLUCOSE, URINE (UA) NEGATIVE (NEGATIVE); KETONES,URINE (UA) TRACE mg/dL (NEGATIVE); LEUKOCYTE ESTERASE, URINE SMALL (NEGATIVE); NITRITE,URINE NEGATIVE (NEGATIVE); OCCULT BLOOD,URINE NEGATIVE (NEGATIVE); PROTEIN,URINE NEGATIVE (NEGATIVE); UROBILINOGEN,URINE 0.2 (NORMAL) E.U./dL (NORMAL)
[2024-03-01 14:42] LABS: CLARITY,URINE HAZY (CLEAR)
[2024-03-01 14:43] LABS: CHOL/HDL RATIO 2.2 (<4.4); CHOLESTEROL 164 mg/dL; HDL CHOLESTEROL 74 mg/dL; LDL CHOLESTEROL,CALCULATED 61 mg/dL; LDL/HDL RATIO 0.8 (<4.4); TRIGLYCERIDES 143 mg/dL (48-352); VLDL CHOLESTEROL 29 mg/dL
[2024-03-01 14:51] LABS: BACTERIA,URINE Moderate /HPF (None Seen); RBC,URINE 0-5 /HPF (0-5); SQUAMOUS EPITHELIAL CELL,UR MANY Squamous (<= Few)
[2024-03-01 20:34] LABS: ESTIMATED AVERAGE GLUCOSE 146 mg/dL (70-100); HEMOGLOBIN A1c% 6.7 % (4.27-6.07)
== END 2024-03-01 14:14 | disposition home or self-care (01) ==
LOC: LAB 14:13
PROVIDERS: ATTEND Internal Medicine
DX: E11.649 Type 2 diabetes mellitus with hypoglycemia without coma (principal); R30.0 Dysuria
CPT/HCPCS: 36415; 80061; 81001; 81003; 83036; 83721; 87086

== ENCOUNTER 2024-03-24 10:27 | Outpatient (CLI) | payer MEDICARE ==
[2024-03-24 11:00] LABS: CHOL/HDL RATIO 2.7 (<4.4); CHOLESTEROL 175 mg/dL; HDL CHOLESTEROL 66 mg/dL; LDL CHOLESTEROL,CALCULATED 84 mg/dL; LDL/HDL RATIO 1.3 (<4.4); TRIGLYCERIDES 127 mg/dL (48-352); VLDL CHOLESTEROL 25 mg/dL
[2024-03-24 12:55] LABS: ESTIMATED AVERAGE GLUCOSE 148 mg/dL (70-100); HEMOGLOBIN A1c% 6.8 % (4.27-6.07)
== END 2024-03-24 10:28 | disposition home or self-care (01) ==
LOC: LAB 10:27
PROVIDERS: ATTEND Internal Medicine
DX: E11.649 Type 2 diabetes mellitus with hypoglycemia without coma (principal)
CPT/HCPCS: 36415; 80061; 83036; 83721